=== PATIENT | female | born 2000 | race Hispanic/Latino ===

== ENCOUNTER 2020-02-07 10:30 | Outpatient (CLI) | payer OTHER ==
[2020-02-07 17:58] LABS: SARS-CoV-2 MS2 Positive; SARS-CoV-2 N Gene Negative; SARS-CoV-2 S Gene Negative; SARS-CoV-2 by NAA Not Detected (NotDetected); SARS-CoV-2 orf1ab Negative
== END 2020-02-07 10:31 | disposition home or self-care (01) ==
LOC: LABBT 10:30
PROVIDERS: ATTEND Family Medicine
DX: Z01.812 Encounter for preprocedural laboratory examination (principal); Z20.828 Contact with and (suspected) exposure to other viral communicable diseases
CPT/HCPCS: 87635; U0003

== ENCOUNTER 2020-02-11 19:15 | Inpatient (IN) | payer OTHER ==
[2020-02-11] MEDS ORDERED: Lidocaine 1% (PF) 30 ML VIAL SC PRN (20:38)
[2020-02-11] MEDS ORDERED: Promethazine HCl 25 MG/ML VIAL IM PRN (20:38)
[2020-02-11] MEDS ORDERED: Misoprostol 200 MCG TAB PR PRN (20:38)
[2020-02-11] MEDS ORDERED: Carboprost 250 MCG/ML AMP IM PRN (20:38)
[2020-02-11] MEDS ORDERED: Ondansetron PF 4 MG/2 ML Vial IVP PRN (20:38)
[2020-02-11] MEDS ORDERED: Butorphanol Tartrate 1 MG/ML VIAL SLOW IVP PRN (20:38)
[2020-02-11] MEDS ORDERED: NS / Oxytocin 40 units/1000ml 1,000 ML IV PRN (20:38)
[2020-02-11] MEDS ORDERED: Methylergonovine 0.2 MG/ML VIAL IM PRN (20:38)
[2020-02-11] MEDS ORDERED: NS w/ Oxytocin 10 units 500 ML IV SCH (20:38)
[2020-02-11] MEDS ORDERED: Diphenoxylate HCl/Atropine Tablet PO PRN (20:38)
[2020-02-11] MEDS ORDERED: hydrALAZINE 20 MG/ML VIAL SLOW IVP PRN (20:38)
[2020-02-11] MEDS ORDERED: Ibuprofen 800 MG TAB PO PRN (20:38)
[2020-02-11] MEDS ORDERED: HYDROcodone/Acetaminophen 5/325 mg Tablet PO PRN (20:38)
[2020-02-11 20:44] VITALS: BMI 31.1
[2020-02-11] MEDS: Misoprostol 100 MCG TAB VAG SCH (21:32)
[2020-02-11 21:33] LABS: Hemoglobin 11.3 g/dL (12.0-16.0); Mean Corpuscular HGB CONC 34.9 g/dL (32.0-36.0); Mean Corpuscular Hemoglobin 33.2 pg (27.0-31.0); Mean Platelet Volume 7.8 fL (7.4-10.4); Platelet Count 250 thou/uL (130-400); RBC Distribution Width 13.2 % (11.5-14.5); White Blood Cell (WBC) Count 7.9 thou/uL (4.8-10.8)
[2020-02-11 22:09] LABS: Syphilis Antibody Nonreactive (Nonreactive); Syphilis Antibody Index 0.07 S/CO (<1.00 Non-Reactive)
[2020-02-12] MEDS: Lactated Ringer's 1,000 ML IV SCH ×3 (00:30→20:41)
[2020-02-12] MEDS: Misoprostol 100 MCG TAB VAG SCH (01:30)
[2020-02-12 01:50] LABS: HBSAg Index 0.21 S/CO (0-0.99); Hep B Surf Ag Non-Reactive S/CO (NonReactive)
[2020-02-12] MEDS: NS w/ Oxytocin 10 units 500 ML IV SCH ×2 (06:49→06:50)
[2020-02-12] MEDS ORDERED: Naloxone HCl 0.4 mg/ml Vial IV PRN ×3 (11:30→22:38)
[2020-02-12] MEDS ORDERED: Ondansetron PF 4 MG/2 ML Vial IVP PRN ×4 (11:30→22:38)
[2020-02-12] MEDS ORDERED: Bupivacaine 0.5% 20 ML, fentaNYL Citrate/PF 400 MCG in Sodium Chloride 0.9% 72 ML EPIDURAL SCH (11:30)
[2020-02-12] MEDS ORDERED: DISCONTINUE ALL PREVIOUS NARCOTICS FS SCH (11:30)
[2020-02-12] MEDS ORDERED: ePHEDrine/0.9% NaCl/PF SYRINGE 50 mg/10 ml IV PRN (11:30)
[2020-02-12] MEDS ORDERED: Lactated Ringer's 500 ML IV PRN ×3 (11:30→22:38)
[2020-02-12] MEDS ORDERED: diphenhydrAMINE 50 MG/ML VIAL IVP PRN ×4 (11:30→22:38)
[2020-02-12] MEDS ORDERED: Hydrocerin (Eucerin) Cream 120 gm Jar TOP PRN (11:30)
[2020-02-12] MEDS ORDERED: Acetaminophen 325 MG TAB PO PRN ×3 (11:30→22:38)
[2020-02-12] MEDS ORDERED: Promethazine HCl 25 MG/ML VIAL IM PRN ×5 (11:30→22:38)
[2020-02-12] MEDS: Fentanyl 4 mcg/Bupivacaine 0.1% Cassette 100 ML EPIDURAL SCH ×2 (11:53→18:52)
[2020-02-12] MEDS ORDERED: Naloxone HCl 0.4 mg/ml Vial IVP PRN ×6 (12:04→22:38)
[2020-02-12] MEDS ORDERED: ePHEDrine 50 MG/ML VIAL SLOW IVP PRN ×2 (12:04→22:38)
[2020-02-12] MEDS ORDERED: Communication Order-Pharmacy FS SCH ×3 (12:15→22:45)
[2020-02-12] MEDS ORDERED: Bicitra 30 ML UDCUP ONE (20:57)
[2020-02-12] MEDS ORDERED: Azithromycin 500 MG VIAL ONE (20:57)
[2020-02-12] MEDS ORDERED: Bicitra 30 ML UDCUP PO SCH (21:00)
[2020-02-12] MEDS ORDERED: Azithromycin 500 MG in Sodium Chloride 0.9% 250 ML 250 ML IVPB SCH (21:00)
[2020-02-12] MEDS ORDERED: CEFAZOLIN 2 GM in Premix Bag 1 BAG IVPB SCH (21:00)
[2020-02-12] MEDS ORDERED: Lidocaine 2% 10 ML INJ ONE ×2 (21:06→21:18)
[2020-02-12] MEDS ORDERED: Oxytocin 10 UNITS/ML VIAL ONE (21:18)
[2020-02-12] MEDS ORDERED: Ondansetron PF 4 MG/2 ML Vial ONE (21:18)
[2020-02-12] MEDS ORDERED: Morphine PF 10 MG/10 ML VIAL ONE (21:18)
[2020-02-12] MEDS ORDERED: PHENYLEPHRINE-NS 100 MCG/ML 10 ML SYRINGE ONE (21:18)
[2020-02-12] MEDS ORDERED: Misoprostol 200 MCG TAB ONE ×3 (21:35→21:36)
[2020-02-12] MEDS ORDERED: Methylergonovine 0.2 MG/ML VIAL ONE (21:40)
[2020-02-12] MEDS ORDERED: Tranexamic Acid 1,000 MG/10 ML VIAL ONE ×2 (21:48→22:05)
[2020-02-12] MEDS ORDERED: Ondansetron HCl/PF 4 MG/2 ML Vial IVP PRN ×2 (22:38)
[2020-02-12] MEDS ORDERED: HYDROmorphone 2 MG/ML VIAL SLOW IVP PRN (22:38)
[2020-02-12] MEDS ORDERED: Ketorolac Tromethamine 30 MG/ML VIAL IVP PRN (22:38)
[2020-02-12] MEDS ORDERED: Promethazine HCl 25 MG/ML VIAL SLOW IVP PRN (22:38)
[2020-02-12] MEDS ORDERED: L&D-Morphine 4 MG/ML VIAL SLOW IVP PRN (22:38)
[2020-02-12] MEDS ORDERED: Meperidine HCl/PF 25 MG/ML VIAL SLOW IVP PRN (22:38)
[2020-02-12] MEDS ORDERED: Promethazine HCl 25 MG SUPP PR PRN (22:38)
[2020-02-12] MEDS ORDERED: Ketorolac Tromethamine 30 MG/ML VIAL IVP SCH (22:45)
[2020-02-12] MEDS: metroNIDAZOLE 500 MG in Premix Bag 1 BAG IVPB SCH (23:27)
[2020-02-13] MEDS: Fentanyl 4 mcg/Bupivacaine 0.1% Cassette 100 ML EPIDURAL SCH ×2 (02:53→09:43)
--- NOTE | 2020-02-13 03:38 | OP ---
DATE OF PROCEDURE: 02/12/2020 SURGEON: Dr. Mendoza RESIDENT SURGEON: Talya Hurt MD PROCEDURE PERFORMED: Primary low transverse section. PREOPERATIVE DIAGNOSES: 1. Term intrauterine , in labor. 2. Arrest of dilation at 7 cm. POSTOPERATIVE DIAGNOSES: 1. Term intrauterine , delivered. 2. Arrest of dilation at 7 cm. 3. hemorrhage due to uterine atony. ANESTHESIA: General. QUANTITATIVE BLOOD LOSS: 1205 mL. SPECIMENS: Cord blood obtained for blood type. FINDINGS: Placenta intact and discarded. Viable female with Apgars of 7 and 8 at 1 and 5 minutes of life respectively. DRAINS: [place] to gravity draining clear urine. Bakri balloon to gravity draining blood. INDICATIONS FOR PROCEDURE: A 19-year-old G1, P0 at 39.4 weeks gestation, presented to Labor and Delivery for elective induction of labor. Arrest of dilation at 7 cm prompted the need for primary low-transverse section. DESCRIPTION OF PROCEDURE: After risks, benefits, and alternatives were explained to the patient, she gave informed consent. Preoperative antibiotics included cefazolin 2 g IV and azithromycin 500 mg IV. The patient was taken to the operating room. The patient was placed in the supine position with a left tilt. Her epidural was found to be inadequate for anesthesia, so general anesthesia was performed. She was prepped and draped in the usual sterile fashion. A Pfannenstiel incision was made using a scalpel and carried down to the level of fascia, which was sharply necked. Dao scissors were used to extend the fascial cut bilaterally. Vinny clamps were used to elevate the superior and inferior aspects of the fascia, and the rectus muscles were bluntly and sharply dissected free. The rectus muscles were divided digitally and retracted manually. The peritoneum was entered digitally and retracted manually. The bladder blade was placed. A low-transverse uterine incision was made using a scalpel. The uterus was entered bluntly in the midline. The hysterotomy was extended bluntly. The infant was noted to be in the vertex presentation. The head was brought to the level of the hysterotomy, and was delivered easily with fundal pressure. The cord was clamped and cut, and the infant was taken to the warmer. Cord blood was obtained for blood type. The placenta was delivered with cord traction and fundal massage. The uterus was exteriorized, and the endometrium was curetted with dry lap. Hysterotomy was partially closed using 1 Monocryl in a running locking fashion. The uterus was noted to be atonic, so Methergine 0.2 mg IM, Hemabate 250 mcg IM, Cytotec 800 mcg intrauterine, and tranexamic acid 1000 mg IV x2 were given. After these interventions, the uterus was still noted to be atonic. A Bakri balloon was inserted into the uterus prior to closure of hysterotomy and filled with 300 mL of normal saline. Hysterotomy was then completely closed with 1 Monocryl. Hysterotomy was noted to be hemostatic. The abdomen was irrigated using sterile saline and suctioned free of clots. Seprafilm was placed over the hysterotomy and the anterior portion of the uterus. The uterus was returned to the abdominal cavity, and hemostasis of the hysterotomy was again noted. Peritoneum was closed using 3-0 Vicryl suture in a running nonlocking fashion. The fascia was closed using 1 PDS in a running nonlocking fashion. Three subcutaneous interrupted sutures were placed using 3-0 plain gut. [place] were used to close the skin. The patient tolerated the procedure well. All counts were correct. The patient was taken back to Labor and Delivery for recovery due to placement of Bakri balloon. Job ID: [id number] [facility]
[2020-02-13] MEDS: CEFAZOLIN 2 GM in Premix Bag 1 BAG IVPB SCH ×3 (05:07→21:04)
[2020-02-13] MEDS ORDERED: hydrALAZINE 20 MG/ML VIAL SLOW IVP SCH (05:16)
[2020-02-13] MEDS ORDERED: HYDROcodone/Acetaminophen 5/325 mg Tablet PO PRN (05:16)
[2020-02-13] MEDS ORDERED: Simethicone Chewable 80 MG TAB PO PRN (05:16)
[2020-02-13] MEDS ORDERED: NS / Oxytocin 40 units/1000ml 1,000 ML IV SCH (05:16)
[2020-02-13] MEDS ORDERED: Meperidine HCl/PF 25 MG/ML VIAL IM PRN (05:16)
[2020-02-13] MEDS ORDERED: Lanolin Ointment 7 GM TUBE TOP PRN (05:16)
[2020-02-13] MEDS ORDERED: diphenhydrAMINE 25 MG CAP PO PRN (05:16)
[2020-02-13] MEDS ORDERED: Ondansetron PF 4 MG/2 ML Vial IVP PRN (05:16)
[2020-02-13] MEDS ORDERED: Bisacodyl 10 MG SUPP PR PRN (05:16)
[2020-02-13] MEDS: metroNIDAZOLE 500 MG in Premix Bag 1 BAG IVPB SCH ×2 (07:29→16:32)
[2020-02-13] MEDS ORDERED: Adacel (T-DAP) 0.5 ML SYRINGE IM ONE (09:00)
[2020-02-13 10:02] LABS: Hemoglobin 8.8 g/dL (12.0-16.0); Mean Corpuscular HGB CONC 34.9 g/dL (32.0-36.0); Mean Corpuscular Hemoglobin 34.3 pg (27.0-31.0); Mean Corpuscular Volume 98.2 fL (78.0-98.0); Mean Platelet Volume 7.7 fL (7.4-10.4); Platelet Count 193 thou/uL (130-400); RBC Distribution Width 13.2 % (11.5-14.5); Red Blood Cell (RBC) Count 2.57 mill/uL (4.20-5.40); White Blood Cell (WBC) Count 11.7 thou/uL (4.8-10.8)
[2020-02-13] MEDS: Ketorolac Tromethamine 30 MG/ML VIAL IVP SCH ×4 (12:30→23:59)
[2020-02-13] MEDS: Docusate Calcium (SURFAK) 240 MG CAP PO SCH ×2 (14:49→21:05)
[2020-02-13] MEDS: Ferrous Sulfate 325 MG TAB PO SCH ×2 (14:49→21:05)
[2020-02-13] MEDS: Prenatal Vitamin 1 TAB PO SCH (14:50)
[2020-02-13] MEDS: Misoprostol 100 MCG TAB VAG SCH ×2 (14:50→14:51)
[2020-02-13] MEDS: Lactated Ringer's 1,000 ML IV SCH (14:51)
[2020-02-13] MEDS ORDERED: metroNIDAZOLE 500 MG in Premix Bag 1 BAG IVPB SCH (23:00)
[2020-02-14] MEDS: metroNIDAZOLE 500 MG in Premix Bag 1 BAG IVPB SCH ×4 (00:02→23:16)
[2020-02-14] MEDS ORDERED: Sodium Chloride 0.9% 10 ML ONE (01:26)
[2020-02-14] MEDS ORDERED: HYDROcodone/Acetaminophen 5/325 mg Tablet PO PRN (02:08)
[2020-02-14] MEDS: HYDROcodone/Acetaminophen 5/325 mg Tablet PO PRN ×3 (02:19→13:49)
[2020-02-14 02:23] LABS: Bacteria/HPF None Seen HPF (None Seen); RBC/HPF Greater than 50 HPF (0-3)
[2020-02-14 04:35] LABS: Bilirubin Negative (Negative); Blood, Urine 3+ (Negative); Clarity Clear (Clear); Glucose, Urine (Dipstick) Normal (Negative); Ketone, Urine Negative (Negative); Leukocyte 25 Leu/uL (Negative); Nitrite Negative (Negative); Protein, Urine (Dipstick) Negative (Neg-Trace); Specific Gravity, Urine 1.014 (1.002-1.036); Urobilinogen Normal mg/dL (Less than 2); pH, Urine 6.5 (5.0-9.0)
[2020-02-14] MEDS: CEFAZOLIN 2 GM in Premix Bag 1 BAG IVPB SCH (05:27)
[2020-02-14] MEDS: Ibuprofen 800 MG TAB PO SCH ×3 (05:27→20:22)
[2020-02-14 06:19] LABS: #Lymphocytes 1.9 thou/uL (1.20-3.40); #Monocytes 0.4 thou/uL (0.11-0.59); #Neutrophils 10.1 thou/uL (1.40-6.50); %Eosinophils 0.4 % (0.0-10.0); %Lymphocytes 15.2 % (21.0-51.0); %Monocytes 3.5 % (0.0-10.0); Hemoglobin 7.4 g/dL (12.0-16.0); Mean Corpuscular HGB CONC 34.1 g/dL (32.0-36.0); Mean Corpuscular Hemoglobin 33.3 pg (27.0-31.0); Mean Corpuscular Volume 97.6 fL (78.0-98.0); Platelet Count 168 thou/uL (130-400); RBC Distribution Width 13.3 % (11.5-14.5); Red Blood Cell (RBC) Count 2.21 mill/uL (4.20-5.40); White Blood Cell (WBC) Count 12.5 thou/uL (4.8-10.8)
[2020-02-14] MEDS: Docusate Calcium (SURFAK) 240 MG CAP PO SCH ×2 (08:29→20:22)
[2020-02-14] MEDS: Prenatal Vitamin 1 TAB PO SCH (08:29)
[2020-02-14] MEDS: Ferrous Sulfate 325 MG TAB PO SCH ×2 (08:30→20:21)
[2020-02-14] MEDS ORDERED: cefTRIAXone\\ROCEPHIN 2 GM in Sodium Chloride 0.9% 100 ML IVPB SCH (10:00)
[2020-02-15] MEDS: Ibuprofen 800 MG TAB PO SCH ×2 (03:58→13:26)
[2020-02-15] MEDS ORDERED: Sodium Chloride 0.9% 10 ML ONE ×2 (07:55→09:17)
[2020-02-15] MEDS: metroNIDAZOLE 500 MG in Premix Bag 1 BAG IVPB SCH ×2 (07:59→09:37)
[2020-02-15] MEDS: Prenatal Vitamin 1 TAB PO SCH (08:15)
[2020-02-15] MEDS: Ferrous Sulfate 325 MG TAB PO SCH (08:15)
[2020-02-15] MEDS: Docusate Calcium (SURFAK) 240 MG CAP PO SCH (08:15)
[2020-02-15] MEDS: HYDROcodone/Acetaminophen 5/325 mg Tablet PO PRN (08:34)
[2020-02-15] MEDS ORDERED: cefTRIAXone\\ROCEPHIN 2 GM VIAL IM SCH (09:45)
[2020-02-15 13:00] VITALS: BP 110/57; TEMP 97.8
[2020-02-15] MEDS ORDERED: metroNIDAZOLE 500 MG TAB PO SCH (15:00)
== END 2020-02-15 16:35 | disposition home or self-care (01) | DRG 787 ==
LOC: L&D 20:02 → 3SW 02-13 13:53
PROVIDERS: ADMIT Family Medicine; ATTEND Family Medicine
PROC: 10D00Z1 Extraction of Products of Conception, Low, Open Approach (ICD-10-PCS; principal; 2020-02-12)
PROC: 0W3R7ZZ Control Bleeding in Genitourinary Tract, Via Natural or Artificial Opening (ICD-10-PCS; 2020-02-12)
DX: O62.1 Secondary uterine inertia (principal); O72.1 Other immediate postpartum hemorrhage; O86.20 Urinary tract infection following delivery, unspecified; Z37.0 Single live birth; Z3A.39 39 weeks gestation of pregnancy
CPT/HCPCS: 36415; 51702; 81003; 81015; 85027; 86780; 86850; 86900; 86901; 87340; J0690; J0696; J1885; J2210; J2270; J2405; J2590; J3010; J3490

== ENCOUNTER 2021-05-07 15:54 | Outpatient (CLI) | payer OTHER | END 2021-05-07 15:55 | disposition home or self-care (01) | LOC: BICULT 15:54 | PROVIDERS: ATTEND Family Medicine | DX: Z34.82 Encounter for supervision of other normal pregnancy, second trimester (principal); Z3A.26 26 weeks gestation of pregnancy | CPT/HCPCS: 76805 ==

== ENCOUNTER 2023-04-19 10:42 | Outpatient (CLI) | payer MEDICAID | END 2023-04-19 10:43 | disposition home or self-care (01) | LOC: BICULT 10:42 | PROVIDERS: ATTEND Nurse Practitioner Women's Health | DX: T83.32XA Displacement of intrauterine contraceptive device, initial encounter (principal) | CPT/HCPCS: 76856 ==